=== PATIENT | male | born 1980 | race Caucasian/White ===

== ENCOUNTER 2020-03-08 17:22 | Emergency (ER) | payer OTHER, SELFPAY ==
--- NOTE | ~2020-03-08 | XR_ITS ---
XR forearm RT 2V 03/08/2020 18:22 INDICATION: Puncture wound to the mid shaft of the right forearm PROCEDURE: 2 views right forearm COMPARISON: No prior studies for comparison. FINDINGS: Fracture, dislocation or subluxation is not identified. Mild soft tissue swelling dorsal to the forearm. No foreign bodies are identified. IMPRESSION: 1: NO ACUTE BONE OR JOINT ABNORMALITY IDENTIFIED. Reviewed, dictated and finalized at location A.
[2020-03-08 17:38] VITALS: BP 121/69; PULSE 88; RESP 13; TEMP 37.3; O2SAT 97
--- NOTE | 2020-03-08 17:44 | ED.WOUNDLAC ---
HPI - Wound/Laceration General Chief Complaint: Wound/Laceration Stated Complaint: stuck with armida wire Time Seen by Provider: 03/08/20 17:27 Source: patient Mode of arrival: ambulatory Limitations: no limitations History of Present Illness HPI narrative: 40-year-old man comes in today complaining of a puncture wound to his right forearm. Patient states that he was working outside and some armida fencing water pump many arm. He has some pain with movement of his fingers but no weakness, decreased movement, numbness or tingling. He had a tetanus shot earlier today at [facility]. Onset (ago): hour(s) (3) Extremity Location: Right: forearm Place: home Patient tetanus UTD: Yes Context: accidental Associated symptoms: pain Treatments prior to arrival: bandage Related Data Home Medications Medication Instructions Recorded Confirmed No Home Medications 03/08/20 03/08/20 Allergies Allergy/AdvReac Type Severity Reaction Status Date / Time No Known Allergies Allergy Verified 03/08/20 17:35 Review of Systems Constitutional: Constitutional: Denies chills and Denies fever(s) Eyes: Eyes: Denies change in vision and Denies photophobia ENT: Denies dysphagia, Denies nasal congestion and Denies sore throat Cardiovascular: Cardiovascular: Denies chest pain and Denies radiating jaw, neck or arm pain Respiratory: Respiratory: Denies cough, Denies dyspnea and Denies wheezing Gastrointestinal: Gastrointestinal: Denies abdominal pain, Denies nausea and Denies vomiting Integumentary/Breasts: Skin/Breast: Denies pruritus, Denies erythema and Denies rash Neurologic: Denies vertigo, Denies dizziness and Denies syncope Psychiatric: Psychiatric: Denies anxiety and Denies depression Hematologic/Lymphatic: Hematologic/Lymphatic: Denies easy bleeding and Denies easy bruising Allergic/Immunologic: Allergic/Immunologic: Denies lip swelling and Denies wheezing PMFSH Social History Social History (Updated 03/08/20 @ 17:53 by Vinicius Chavarria MD) Smoking status: Current every day smoker Alcohol intake: current Substance use: never Living arrangements: with family Exam Const: General: healthy appearing and no acute distress Limitations: no limitations Resp: Effort & Inspection: normal respiratory effort and not labored Auscultation: clear to auscultation bilaterally, no rales, no rhonchi and no wheezes Cardio: Rate: regular rate Rhythm: regular rhythm Heart sounds: no murmurs Skin: General skin exam: normal color, no jaundice and no pallor Rashes: no rashes Other: Puncture wound on left volar forearm on the ulnar aspect. There is mild swelling and tenderness around the wound with no definite palpable foreign body. Is approximately 1 cm total in length. There is no erythema or pus from the wound. Neuro: General: patient oriented x3, moves all extremities, no focal motor deficits and CN's II-XI intact bilaterally Speech: normal speech Extrem: General: normal to inspection and no clubbing, cyanosis or edema Other: Normal flexion and extension of the right pinky, ring and long fingers. Psych: Appearance: grossly normal and well kempt Mental Status: mental status grossly normal Affect: normal affect Attitude: cooperative Thought content: Yes Normal thought content present Course Vital Signs Vital signs: Vital Signs Temperature 37.3 C 03/08/20 17:38 Pulse Rate 88 03/08/20 17:38 Respiratory Rate 13 03/08/20 17:38 Blood Pressure 121/69 03/08/20 17:38 Pulse Oximetry 97 03/08/20 17:38 Temperature 37.3 C 03/08/20 17:38 Pulse Rate 88 03/08/20 17:38 Respiratory Rate 15 03/08/20 18:30 Blood Pressure 121/69 03/08/20 17:38 Pulse Oximetry 100 03/08/20 18:30 Discharge Plan Discharge Clinical Impression: Puncture wound Patient Disposition: Home, Self-Care Condition: Stable Instructions: Antibiotic Form, Puncture Wound (ED) Additional Instructions: Ezequiel
--- NOTE | 2020-03-08 17:56 | PC.NURSE ---
WOUND IRRIGATED WITH SAFE-CLENS, CLEANED WITH HIBICLENS, AND COVERED WITH BANDAID PER ERP ORDERS.
[2020-03-08 18:30] VITALS: RESP 15; O2SAT 100
== END 2020-03-08 18:37 | disposition home or self-care (01) ==
PROVIDERS: Emergency Provider Emergency Medicine
DX: S51.831A Puncture wound without foreign body of right forearm, initial encounter (principal); W45.8XXA Other foreign body or object entering through skin, initial encounter
CPT/HCPCS: 73090; 99283